=== PATIENT | male | born 1950 | race Caucasian/White ===

== ENCOUNTER 2017-04-02 10:28 | Emergency (ER) | payer OTHER ==
[~2017-04-02] VITALS: Ht 180.3 cm; Wt 94.3 kg
[~2017-04-02 10:28] MED LIST: NAPROSYN500 MG PO; PERCOCET 5/31 TABLET PO; ZOFRAN4 MG PO
[2017-04-02 13:07] LABS: EOSINOPHIL (%) 0.9 % (0-5); EOSINOPHIL COUNT 0.1 K/uL (0-0.3); HEMATOCRIT 46.2 % (38.0-50.0); IMMATURE GRANULOCYTE (%) 0.1 % (0.0-0.7); INSTRUMENT ABS NEUTROPHIL CT 4.7 K/uL; LYMPHOCYTE COUNT 1.5 K/uL (1.0-2.8); MCH 28.5 PG (29.0-34.0); MCHC 33.8 G/DL (30.0-36.0); MCV 84.3 FL (86-99); MEAN PLAT.VOLUME 10.7 uM^3 (9.0-12.4); MONOCYTE (%) 6.8 % (3-12); MONOCYTE COUNT 0.5 K/uL (0-0.8); NEUTROPHIL (%) 69.5 % (45-76); NEUTROPHIL COUNT 4.7 K/uL (1.8-6.4); PLATELET COUNT 158 K/uL (156-360); RBC DIS.WIDTH-CV 13.2 % (11.8-14.6); RED BLOOD COUNT 5.48 M/uL (4.00-5.50); WHITE BLOOD COUNT 6.8 K/uL (4.1-10.2)
[2017-04-02 13:17] LABS: CHLORIDE 107 mEq/L (99-109); POTASSIUM 4.4 mEq/L (3.7-5.4); SODIUM 141 mEq/L (136-147)
[2017-04-02 13:19] LABS: GLUCOSE 90 mg/dL (70-99)
[2017-04-02 13:20] LABS: ANION GAP 9 MEQ/L (2-14)
[2017-04-02 13:21] LABS: TOTAL BILIRUBIN 2.3 mg/dL (0.0-1.0)
[2017-04-02 13:22] LABS: ALKALINE PHOSPHATASE 58 IU/L (3-129)
[2017-04-02 13:23] LABS: GFR ESTIMATE (CALCULATED) > 59 mL/min/
[2017-04-02 13:24] LABS: UREA NITROGEN (BUN) 16 mg/dL (9-23)
[2017-04-02 16:07] VITALS: BP 157/84
== END 2017-04-02 16:23 | disposition home or self-care (01) ==
LOC: EME 10:28
PROVIDERS: Emergency Medicine
DX: F41.9 Anxiety disorder, unspecified (principal); R42 Dizziness and giddiness; I10 Essential (primary) hypertension
CPT/HCPCS: 80053; 85025; 93005; 99281; 99284